=== PATIENT | female | born 1970 | race Caucasian/White ===

== ENCOUNTER 2022-04-21 08:52 | Outpatient (CLI) | payer BC ==
[2022-04-21] MEDS ORDERED: Iopamidol 370 76% 100 ML VIAL ONE (14:50)
== END 2022-04-21 08:53 | disposition home or self-care (01) ==
LOC: CT 08:52
PROVIDERS: ATTEND Student in an Organized Health Care Education/Training Program
DX: G43.909 Migraine, unspecified, not intractable, without status migrainosus (principal)
CPT/HCPCS: 70470; Q9967